=== PATIENT | female | born 1960 | race Caucasian/White ===

== ENCOUNTER 2017-03-21 11:19 | Inpatient (IN) | payer OTHER ==
[~2017-03-21] VITALS: Ht 154.9 cm; Wt 67.1 kg
--- NOTE | 2017-03-21 12:30 | NUR ---
MS ASSOCIATE PROFESSOR OF ENGLISH NOTE PATIENT IS ALERT AND ORIENTED x4. PATIENT IS FROM [facility]. NO PAIN AT THIS TIME. NO SOB OR DISTRESS AT THIS TIME. CALL LIGHT WITHIN REACH. SAFETY MEASURES IMPLEMENTED. ABLE TO COMMUNICATE NEEDS. NO IV ACCESS. AWAITING FOR MD ORDERS AT THIS TIME. PATIENT SKIN INTACT. ALL BELONGINGS ACCOUNTED FOR AND AT BEDSIDE. PATIENT HAS MILD WEAKNESS ON RIGHT SIDE. REQUIRES ASSISTANCE WHEN WALKING. HISTORY OF NEUROPATHY AND TRAUMATIC BRAIN INJURY WEARS HELMET WHEN OUT OF BED. WILL CONTINUE TO MONITOR THROUGHOUT SHIFT.
[2017-03-21] MEDS ORDERED: IV NS 0.9% 1,000 ML IV PRN (12:51)
[2017-03-21] MEDS ORDERED: ACETAMINOPHEN 325 MG TABLET PO PRN (13:00)
[2017-03-21] MEDS ORDERED: ONDANSETRON HCL/PF 4 MG/2 ML VIAL IVP PRN (13:00)
[2017-03-21] MEDS ORDERED: MAG HYDROX/AL HYDROX/SIMETH 30 ML UDC PO PRN (13:00)
[2017-03-21] MEDS ORDERED: ZOLPIDEM TARTRATE 5 MG TABLET PO PRN (13:00)
[2017-03-21] MEDS ORDERED: MAGNESIUM HYDROXIDE 30 ML UDC PO PRN (13:00)
[2017-03-21] MEDS ORDERED: Z GUARD REMEDY 2 OZ OINT TP PRN (13:00)
[2017-03-21] MEDS: HYDROCODONE/APAP 5/325MG 1 EACH TABLET PO PRN ×3 (13:53→23:20)
--- NOTE | 2017-03-21 15:50 | NUR ---
MS RN NOTE PER PATIENT REFUSING IV INSERTION AT THIS TIME. CHARGE NURSE INFORMED
[2017-03-21 16:00] VITALS: BP 133/85
--- NOTE | 2017-03-21 17:13 | NUR ---
MS RN NOTE PER PATIENT SHE HAS DNR/DNI ADVANCED DIRECTIVE FROM [facility]AN[facility]. PATIENT WISHES TO BE DNR/DNI AT THIS TIME. AWARE.
[2017-03-21] MEDS: ALPRAZOLAM 0.25 MG TABLET PO PRN (18:00)
[2017-03-21] MEDS ORDERED: ALPR1TAB2 PO (18:40)
[2017-03-21] MEDS ORDERED: BACL10TA PO (18:40)
[2017-03-21] MEDS ORDERED: OXYB10TA PO (18:40)
[2017-03-21] MEDS ORDERED: TRAM50TA2 PO (18:40)
[2017-03-21] MEDS ORDERED: GABA-536 PO (18:40)
[2017-03-21] MEDS ORDERED: LEVE500T9 PO (18:40)
[2017-03-21] MEDS ORDERED: MIRT15TA7 PO (18:40)
[2017-03-21] MEDS ORDERED: FOLI1TAB16 PO (18:40)
[2017-03-21] MEDS ORDERED: HYDR-548 PO (18:40)
[2017-03-21] MEDS ORDERED: THYR60TA30 PO (18:40)
[2017-03-21] MEDS ORDERED: THYR90TA12 PO (18:40)
[2017-03-21] MEDS ORDERED: SULI150T PO (18:40)
[2017-03-21] MEDS ORDERED: DULO60CA45 PO (18:40)
--- NOTE | 2017-03-21 18:50 | NUR ---
MS RN CLOSING NOTE PATIENT IS ALERT AND ORIENTED x4. NO PAIN AT THIS TIME. NO SOB OR DISTRESS NOTED. CALL LIGHT WITHIN REACH AT ALL TIMES. SAFETY MEASURES IMPLEMENTED. ALL DUE MEDICATIONS GIVEN ORDERED. PATIENT REFUSES IV ACCESS. PATIENT REQUEST TO BE DNR/DNIMD AWARE. WILL ENDORSE TO NIB ADJUSTER FOR CINTHYA
--- NOTE | 2017-03-21 19:30 | NUR ---
MS RN OPENING NOTES: PATIENT IN BED, ASLEEP AT THIS TIME. BREATHING EVEN AND UNLABORED. PROVIDED FOR COMFORT AND SAFETY. BED IN LOWEST AND LOCKED POSITION, SIDERAILS UP X3, CALL LIGHT WITHIN REACH. WILL CONT TO MONITOR.
[2017-03-21 20:00] VITALS: BP 133/92
--- NOTE | 2017-03-21 21:10 | NUR ---
RN NOTES: CALLED [facility] WALLBOARD WORKER, DR HUITRON, RE PATIENT'S HOME MEDS IF OK TO CONTINUE. PER MD, CONTINUE ALL HOME MEDS. PATIENT REQUESTING FOR HER REMERON AT . NOTED AND CARRIED OUT.
[2017-03-21] MEDS ORDERED: MIRTAZAPINE 15 MG TABLET ONE (22:23)
[2017-03-21] MEDS: MIRTAZAPINE 15 MG TABLET PO SCH (22:30)
--- NOTE | 2017-03-22 02:23 | NUR ---
RN NOTES: OFFERED DVT PUMPS TO PATIENT, EDUCATION GIVEN REGARDING INDICATION AND USES, HOWEVER, PATIENT REFUSED.
[2017-03-22] MEDS: HYDROCODONE/APAP 5/325MG 1 EACH TABLET PO PRN ×4 (04:31→18:51)
--- NOTE | 2017-03-22 04:36 | NUR ---
RN NOTES: PATIENT COMPLAINED OF 7/10 PAIN OVER LEFT HAND AND LEFT FOOT. ADMINISTERED NORCO 5-325 MG PO PRN. PROVIDED FOR SAFETY. WILL CONT TO MONITOR.
--- NOTE | 2017-03-22 06:48 | NUR ---
MS RN CLOSING NOTES: PATIENT IN BED, AOX3, ON ROOM AIR, BREATHING EVEN AND UNLABORED. APPEARS CALM AND IN NO DISTRESS, STILL COMPLAINING OF MILD PAIN OVER LEFT HAND AND FOOT. DUE MEDS GIVEN. PROVIDED FOR COMFORT AND SAFETY. MORNING CARE RENDERED. BED IN LOWEST AND LOCKED POSITION, SIDERAILS UP X3, CALL LIGHT WITHIN REACH. WILL ENDORSE TO AM RN FOR CINTHYA.
[2017-03-22 06:56] LABS: BASOPHILS % (AUTO) 0.3 % (0.0-2.0); EOSINOPHILS # (AUTO) 0.1 /CMM (0.0-0.7); EOSINOPHILS % (AUTO) 1.4 % (0.0-6.0); HEMATOCRIT 45 % (33-45); HEMOGLOBIN 14.4 g/dL (11.5-14.8); LYMPHOCYTES # (AUTO) 2.2 /CMM (0.8-4.8); LYMPHOCYTES % (AUTO) 21.8 % (20.0-44.0); MEAN CORPUSCULAR HEMOGLOBIN 31 PG (26.0-33.0); MEAN CORPUSCULAR HGB CONC 32 g/dl (31.0-36.0); MEAN CORPUSCULAR VOLUME 95 fL (82-100); MONOCYTES # (AUTO) 0.6 /CMM (0.1-1.30); MONOCYTES % (AUTO) 5.7 % (2.0-12.0); NEUTROPHILS # (AUTO) 7.3 /CMM (1.8-8.9); NEUTROPHILS % (AUTO) 70.8 % (43.0-81.0); PLATELET COUNT (AUTO) 516 /CMM (150-450); RDW COEFFICIENT OF VARIATION 12.7 (11.5-15.0); WHITE BLOOD COUNT (AUTO) 10.3 K/uL (4.3-11.0)
[2017-03-22 07:09] LABS: APPEARANCE,URINE CLEAR (CLEAR); BILIRUBIN,URINE 1+ (NEGATIVE); BLOOD, URINE NEGATIVE Ery/uL (NEGATIVE); COLOR,URINE YELLOW (YELLOW); KETONES,URINE 3+ (NEGATIVE); LEUKOCYTE ESTERASE ,URINE NEGATIVE (NEGATIVE); NITRITE, URINE NEGATIVE (NEGATIVE); PROTEIN,URINE NEGATIVE (NEGATIVE); UGLUCOSE NEGATIVE (NEGATIVE); UROBILINOGEN,URINE 0.2 EU/dL (0.2)
[2017-03-22 07:28] LABS: ALBUMIN 3.9 g/dL (3.4-5.0); BILIRUBIN,TOTAL 0.5 mg/dL (0.2-1.0); CALCIUM, SERUM 9.9 mg/dL (8.5-10.1); CREATININE 0.8 mg/dL (0.6-1.3); INR 0.98 (0.87-1.13); MAGNESIUM 1.9 mg/dL (1.8-2.4); PHOSPHORUS 3.7 mg/dL (2.5-4.9); POTASSIUM 3.8 mmol/L (3.5-5.1); PROTHROMBIN TIME 10.2 SECS (9.5-12.7); TOTAL PROTEIN, SERUM 7.9 g/dL (6.4-8.2)
[2017-03-22 07:39] LABS: CREATINE KINASE MB 0.9 ng/mL (0-3.6); PREALBUMIN 22.7 MG/DL (18.0-35.7)
--- NOTE | 2017-03-22 07:45 | NUR ---
MS RN OPENING NOTES RECEIVED PATIENT IN NO APPARENT DISTRESS. PATIENT IS ALERT AND RESTING IN BED. BEDSIDE RAILS ARE UP X2. BED IS LOCKED AND LOWERED. WILL CONTINUE TO MONITOR. CALL LIGHT IS WITHIN REACH.
[2017-03-22 08:00] VITALS: BP 145/89
[2017-03-22] MEDS ORDERED: ALPRAZOLAM 1 MG TABLET PO PRN (08:00)
[2017-03-22] MEDS ORDERED: SULINDAC 200 MG TABLET PO SCH (09:00)
[2017-03-22] MEDS ORDERED: LEVETIRACETAM (250 MG) 250 MG TABLET PO SCH (09:00)
[2017-03-22] MEDS: FOLIC ACID 1 MG TABLET PO SCH (09:02)
[2017-03-22] MEDS: OXYBUTYNIN CHLORIDE 5 MG TABLET PO SCH ×2 (09:02→16:17)
[2017-03-22] MEDS: DULOXETINE HCL 30 MG CAPSULE.DR PO SCH (09:04)
[2017-03-22] MEDS: GABAPENTIN 400 MG CAPSULE PO SCH ×3 (09:04→16:17)
[2017-03-22] MEDS: TRAMADOL HCL 50 MG TABLET PO SCH ×3 (09:04→16:18)
[2017-03-22] MEDS: BACLOFEN (10 MG) 10 MG TABLET PO SCH ×3 (09:04→16:17)
[2017-03-22] MEDS ORDERED: MENTHOL/CETYLPYRD (CEPACOL) 1 LOZ LOZENGE PO PRN (10:00)
[2017-03-22] MEDS: THYROID 30 MG TABLET PO SCH (10:25)
[2017-03-22 11:05] LABS: BACTERIA,URINE Few /HPF (None Seen); RBC,URINE NONE SEEN /HPF (0-2); SQUAMOUS EPITHELIAL CELL,UR Few /HPF (None Seen); WBC,URINE 0-2 /HPF (0-3)
[2017-03-22] MEDS: ALPRAZOLAM 0.25 MG TABLET PO PRN (11:50)
[2017-03-22 16:00] VITALS: BP 128/85
[2017-03-22] MEDS: LEVETIRACETAM (250 MG) 250 MG TABLET PO SCH (17:56)
--- NOTE | 2017-03-22 18:56 | NUR ---
MS RN CLOSING NOTES PATIENT IS IN STABLE CONDITION. IN NO APPARENT DISTRESS. BEDSIDE RAILS ARE UP X2. CALL LIGHT IS WITHIN REACH. BED IS LOCKED AND LOWERED. WILL ENDORSE CARE TO PRODUCT CONSULTANT NURSE FOR CINTHAY.
--- NOTE | 2017-03-22 19:35 | NUR ---
MS RN INITIAL NOTES RECEIVED PT IN BED, ALERT, AWAKE, VERBALLY RESPONSIVE, ON ROOM AIR, NO SOB,NO APPARENT DISTRESS NOTED. DENIES ANY PAIN OR DISCOMFORT AT THIS TIME.KEPT CLEAN AND COMFORTABLE,ATTENDED ALL NEEDS. WILL CONTINUE TO MONITOR ACCORDINGLY.
[2017-03-22 20:00] VITALS: BP 120/76
[2017-03-22] MEDS: MIRTAZAPINE 15 MG TABLET PO SCH (21:09)
[2017-03-22 21:56] VITALS: BP 120/76
[2017-03-22] MEDS ORDERED: MIRTAZAPINE 15 MG TABLET PO SCH (22:00)
[2017-03-23] MEDS: HYDROCODONE/APAP 10/325MG 1 EA TABLET PO PRN ×5 (04:41→22:12)
--- NOTE | 2017-03-23 06:16 | NUR ---
MS RN CLOSING NOTES PT ALERT,AWAKE,VERBALLY RESPONSIVE,ON ROOM AIR, RESPIRATIONS EVEN, UNLABORED, NO SOB NOTED.COMPLAINED OF PAIN IN THE LEFT LOWER LED AND LT ARM, NORCO 10-325 ADMINISTERED ORDERED. KEPT CLEAN AND COMFORTABLE,ATTENDED ALL NEEDS.CALL LIGHT WITHIN REACH. WILL CONTINUE TO MONITOR.
[2017-03-23] MEDS ORDERED: THYROID 30 MG TABLET PO SCH (07:30)
--- NOTE | 2017-03-23 07:34 | NUR ---
MS RN OPENING NOTES RECEIVED PATIENT IN STABLE CONDITION. IN NO APPARENT DISTRESS. PATIENT IS RESTING IN BED. BEDSIDE RAILS ARE UP X2. BED IS LOCKED AND LOWERED. CALL LIGHT IS WITHIN REACH. WILL CONTINUE TO MONITOR.
[2017-03-23] MEDS: THYROID 30 MG TABLET PO SCH (07:58)
[2017-03-23 08:00] VITALS: BP 122/76
[2017-03-23] MEDS: GABAPENTIN 400 MG CAPSULE PO SCH ×3 (08:00→16:10)
[2017-03-23] MEDS: DULOXETINE HCL 30 MG CAPSULE.DR PO SCH (08:01)
[2017-03-23] MEDS: TRAMADOL HCL 50 MG TABLET PO SCH ×3 (08:01→16:10)
[2017-03-23] MEDS: LEVETIRACETAM (250 MG) 250 MG TABLET PO SCH (08:01)
[2017-03-23] MEDS: BACLOFEN (10 MG) 10 MG TABLET PO SCH ×3 (08:01→16:10)
[2017-03-23] MEDS: OXYBUTYNIN CHLORIDE 5 MG TABLET PO SCH ×2 (08:01→16:11)
[2017-03-23] MEDS: FOLIC ACID 1 MG TABLET PO SCH (08:05)
[2017-03-23 16:00] VITALS: BP 115/74
--- NOTE | 2017-03-23 18:58 | NUR ---
MS RN CLOSING NOTES PATIENT IS NO APPARENT DISTRESS. PATIENT IS ALERT AND RESTING IN BED. CALL LIGHT IS WITHIN REACH. BEDSIDE RAILS ARE UP X2. BED IS LOCKED AND LOWERED. ALL NEEDS WERE MET. WILL ENDORSE CARE TO SLPS NURSE FOR CINTHYA.
--- NOTE | 2017-03-23 19:46 | NUR ---
MS RN OPENING NOTES RECEIVED PT IN BED, AWAKE,ALERT,VERBALLY RESPONSIVE,ON ROOM AIR,NO SOB, NO APPARENT DISTRESS NOTED.DENIES ANY PAIN OR DISCOMFORT AT THIS TIME. KEPT CLEAN AND COMFORTABLE,CALL LIGHT WITHIN REACH.WILL CONTINUE TO MONITOR ACCORDINGLY
[2017-03-23 20:00] VITALS: BP 105/79
[2017-03-23 21:01] VITALS: BP 105/79
[2017-03-23] MEDS: MIRTAZAPINE 15 MG TABLET PO SCH (22:12)
[2017-03-24] MEDS: HYDROCODONE/APAP 10/325MG 1 EA TABLET PO PRN ×4 (05:19→20:10)
--- NOTE | 2017-03-24 06:29 | NUR ---
MS RN CLOSING NOTES PT IN BED,ASLEEP,ON ROOM AIR,NO SOB NOTED. NO S/SX OF PAIN OR DISCOMFORT NOTED,BED IN LOWEST POSITION, CALL LIGHT WITHIN REACH. WILL CONTINUE TO MONITOR ACCORDINGLY
[2017-03-24 07:29] LABS: BASOPHILS % (AUTO) 0.5 % (0.0-2.0); EOSINOPHILS # (AUTO) 0.5 /CMM (0.0-0.7); EOSINOPHILS % (AUTO) 4.7 % (0.0-6.0); HEMATOCRIT 41 % (33-45); HEMOGLOBIN 13.6 g/dL (11.5-14.8); LYMPHOCYTES # (AUTO) 3.2 /CMM (0.8-4.8); MEAN CORPUSCULAR HEMOGLOBIN 31 PG (26.0-33.0); MEAN CORPUSCULAR HGB CONC 33 g/dl (31.0-36.0); MEAN CORPUSCULAR VOLUME 95 fL (82-100); MONOCYTES # (AUTO) 0.9 /CMM (0.1-1.30); MONOCYTES % (AUTO) 8.1 % (2.0-12.0); NEUTROPHILS % (AUTO) 56.7 % (43.0-81.0); PLATELET COUNT (AUTO) 484 /CMM (150-450); RDW COEFFICIENT OF VARIATION 12.6 (11.5-15.0); RED BLOOD CELL COUNT(AUTO) 4.34 MIL/uL (4.0-5.2); WHITE BLOOD COUNT (AUTO) 10.7 K/uL (4.3-11.0)
--- NOTE | 2017-03-24 07:34 | NUR ---
MS RN OPENING NOTES RECEIVED PATIENT IN STABLE CONDITION. IN NO APPARENT DISTRESS. PATIENT IS ALERT. BEDSIDE RAILS ARE UP X2. BED IS LOCKED AND LOWERED. CALL LIGHT IS WITHIN REACH. WILL CONTINUE TO MONITOR.
[2017-03-24 07:53] LABS: CALCIUM, SERUM 9.3 mg/dL (8.5-10.1); CREATININE 0.8 mg/dL (0.6-1.3); MAGNESIUM 1.9 mg/dL (1.8-2.4); PHOSPHORUS 3.9 mg/dL (2.5-4.9); POTASSIUM 3.5 mmol/L (3.5-5.1)
[2017-03-24 08:00] VITALS: BP 124/78
[2017-03-24] MEDS: BACLOFEN (10 MG) 10 MG TABLET PO SCH ×3 (08:09→16:43)
[2017-03-24] MEDS: LEVETIRACETAM (250 MG) 250 MG TABLET PO SCH (08:09)
[2017-03-24] MEDS: DULOXETINE HCL 30 MG CAPSULE.DR PO SCH (08:10)
[2017-03-24] MEDS: FOLIC ACID 1 MG TABLET PO SCH (08:10)
[2017-03-24] MEDS: OXYBUTYNIN CHLORIDE 5 MG TABLET PO SCH ×2 (08:10→16:43)
[2017-03-24] MEDS: TRAMADOL HCL 50 MG TABLET PO SCH ×3 (08:10→16:48)
[2017-03-24] MEDS: GABAPENTIN 400 MG CAPSULE PO SCH ×3 (08:10→16:43)
[2017-03-24] MEDS: THYROID 30 MG TABLET PO SCH (08:12)
[2017-03-24 16:00] VITALS: BP 119/75
[2017-03-24] MEDS: SULINDAC 200 MG TABLET PO SCH (18:21)
--- NOTE | 2017-03-24 19:14 | NUR ---
MS RN CLOSING NOTES PATIENT IS ALERT AND IN NO APPARENT DISTRESS. PATIENT IS RESTING IN BED. ALL NEEDS WERE MET. BEDSIDE RAILS ARE UP X2. BED IS LOCKED AND LOWERED. WILL ENDORSE CARE TO ENERGY ENGINEER NURSE FOR CINTHYA.
[2017-03-24 20:00] VITALS: BP 119/74
[2017-03-24] MEDS: MIRTAZAPINE 15 MG TABLET PO SCH (20:09)
--- NOTE | 2017-03-24 20:10 | NUR ---
msrn VERBALIZES PAIN ON LEFT HAND AND LEFT FOOT. MEDICATED WITH NORCO 10/325 1 TAB ORDERED. REQUESTED FOR REMERON TO BE ADMINISTERED EARLY. WANTED TO SLEEP EARLY, FEELING TIRED FROM PHYSICAL THERAPY TODAY. HS CARE STARTED, CONTINUED.
--- NOTE | 2017-03-24 22:53 | NUR ---
STEPHIE SLEEPING OF THIS TIME, CLOSELY WATCHED.
--- NOTE | 2017-03-24 23:30 | NUR ---
RN NOTES: RECEIVED PATIENT'S REPORT FROM CHRISTY BRIGHT, FOR CINTHYA. PATIENT IN BED, ASLEEP OF THIS TIME. ON ROOM AIR, BREATHING EVEN AND UNLABORED. BED IN LOWEST AND LOCKED POSITION, SIDERAILS UP X 3. CALL LIGHT WITHIN REACH. WILL CONT TO MONITOR.
[2017-03-25] MEDS: HYDROCODONE/APAP 10/325MG 1 EA TABLET PO PRN ×5 (06:21→23:58)
--- NOTE | 2017-03-25 06:23 | NUR ---
MS RN CLOSING NOTES: PATIETN IN BED, AOX4, ON ROOM AIR, BREATHING EVEN AND UNLABORED. PATIENT COMPLAINS OF PAIN OVER LEFT ARM AND LEFT LEG, SCALED AT 8/10, ADMINISTERED NORCO 10-325 PO PRN. PROVIDED FOR COMFORT AND SAFETY. VS CHECKED, STABLE. BED IN LOWEST AND LOCKED POSITION, SIDERAILS UP X3. WILL ENDORSE TO AM RN FOR CINTHYA.
[2017-03-25 06:25] VITALS: BP 128/75
--- NOTE | 2017-03-25 07:30 | NUR ---
ms rn received on bed, awake,alert,oriented x4,not in any form of distress, respirations even and unlabored, no sob noted. lungs are clear,abdomen soft,positive bowel sounds, denies pain a this time,all needs attended.
[2017-03-25 08:00] VITALS: BP 108/72
--- NOTE | 2017-03-25 09:20 | NUR ---
ms carias breakfast served,due meds given,tolerated well.
[2017-03-25] MEDS: GABAPENTIN 400 MG CAPSULE PO SCH ×3 (09:33→17:22)
[2017-03-25] MEDS: BACLOFEN (10 MG) 10 MG TABLET PO SCH ×3 (09:33→17:22)
[2017-03-25] MEDS: LEVETIRACETAM (250 MG) 250 MG TABLET PO SCH (09:33)
[2017-03-25] MEDS: FOLIC ACID 1 MG TABLET PO SCH (09:33)
[2017-03-25] MEDS: SULINDAC 200 MG TABLET PO SCH ×2 (09:33→17:22)
[2017-03-25] MEDS: OXYBUTYNIN CHLORIDE 5 MG TABLET PO SCH ×2 (09:34→17:22)
[2017-03-25] MEDS: DULOXETINE HCL 30 MG CAPSULE.DR PO SCH (09:34)
[2017-03-25] MEDS: TRAMADOL HCL 50 MG TABLET PO SCH ×3 (09:35→17:23)
[2017-03-25] MEDS: THYROID 30 MG TABLET PO SCH (10:13)
[2017-03-25 16:00] VITALS: BP 118/78
--- NOTE | 2017-03-25 17:00 | NUR ---
MS RN PATIENT NOTIFIED THAT D'C WILL HAPPEN TOMORROW,NOT TODAY.
[2017-03-25] MEDS: ALPRAZOLAM 0.25 MG TABLET PO PRN (17:24)
--- NOTE | 2017-03-25 17:59 | NUR ---
MS CHRISTY NO CHANGE OF CONDITION, WILL ENDORSE TO GRANITE CUTTER APPRENTICE FOR CINTHYA.
--- NOTE | 2017-03-25 19:25 | NUR ---
MS/RN NOTES RECEIVED PT. LYING IN BED. AWAKE, ALERT AND ORIENTED X3-4. BREATHING EVEN AND UNLABORED ON ROOM AIR. NO SOB, RESPIRATORY DISTRESS OR COMPLAINTS OF PAIN NOTED AT THIS TIME. PT. WITH NO IV ACCESS, PT. REFUSING, PER DAYSHIFT NURSE AWARE. BED LOCKED AND IN LOWEST POSITION, SIDE RAILS UP X3, CALL LIGHT WITHIN REACH, BED ALARM ON, WILL CONTINUE TO MONITOR.
[2017-03-25 20:00] VITALS: BP 107/71
[2017-03-25] MEDS: MIRTAZAPINE 15 MG TABLET PO SCH (21:40)
--- NOTE | 2017-03-25 23:59 | NUR ---
MSRN VERBALIZES PAIN ON LEFT ARM TO LEG LEVEL 8/10. NORCO 10/325 1 TAB PO ADMINISTERED ORDERED. POSITIONS SELF FOR COMFORT. XTRA WARM BLANKET PROVIDED.
--- NOTE | 2017-03-26 06:29 | NUR ---
MS/RN NOTES PT. IS LYING IN BED RESTING. BREATHING EVEN AND UNLABORED ON ROOM AIR. NO SOB, RESPIRATORY DISTRESS OR COMPLAINTS OF PAIN NOTED AT THIS TIME. PT. REMAINS WITH NO IV ACCESS, MD AWARE. ALL PT. NEEDS MET. ALL DUE MEDICATIONS GIVEN. BED LOCKED AND IN LOWEST POSITION, SIDE RAILS UP X3, CALL LIGHT WITHIN REACH, BED ALARM ON, WILL ENDORSE TO DAYSHIFT NURSE FOR CONTINUITY OF CARE.
[2017-03-26] MEDS: HYDROCODONE/APAP 10/325MG 1 EA TABLET PO PRN ×3 (07:14→17:50)
--- NOTE | 2017-03-26 07:30 | NUR ---
MS RN RECEIVED ON BED,AWAKE,ALERT,ORIENTED X4,NOT IN ANY FORM OF DISTRESS, RESPIRATIONS EVEN AND UNLABORED,NO SOB NOTED, LUNGS ARE CLEAR,ABDOMEN SOFT,POSITIVE BOWEL SOUNDS, DENIES PAIN AT THIS TIME, WILL MON ITOR PATIENT'S CONDITION,ALL NEEDS ATTENDED.
[2017-03-26 08:00] VITALS: BP 124/72
[2017-03-26] MEDS: THYROID 30 MG TABLET PO SCH (08:23)
[2017-03-26] MEDS: SULINDAC 200 MG TABLET PO SCH ×2 (08:24→16:58)
[2017-03-26] MEDS: OXYBUTYNIN CHLORIDE 5 MG TABLET PO SCH ×2 (08:24→16:59)
[2017-03-26] MEDS: FOLIC ACID 1 MG TABLET PO SCH (08:25)
[2017-03-26] MEDS: DULOXETINE HCL 30 MG CAPSULE.DR PO SCH (08:25)
[2017-03-26] MEDS: LEVETIRACETAM (250 MG) 250 MG TABLET PO SCH (08:25)
[2017-03-26] MEDS: BACLOFEN (10 MG) 10 MG TABLET PO SCH ×3 (08:25→16:59)
[2017-03-26] MEDS: GABAPENTIN 400 MG CAPSULE PO SCH ×3 (08:25→16:59)
[2017-03-26] MEDS: TRAMADOL HCL 50 MG TABLET PO SCH ×3 (08:26→16:59)
--- NOTE | 2017-03-26 09:00 | NUR ---
MS HARRISON BREAKFAST SERVED,DUE MEDS GIVEN,TOLERATED WELL.
--- NOTE | 2017-03-26 10:14 | NUR ---
MS RN WAITING FOR DISCHARGE, ALL NEEDS ATTENDED.
[2017-03-26 16:00] VITALS: BP 98/68
--- NOTE | 2017-03-26 18:29 | NUR ---
MS RN PATIENT DISCHARGE TO [facility] VIA AMBULANCE,ALL NEEDS ATTENDED.
== END 2017-03-26 18:00 | DRG 816 ==
LOC: ER 11:24 → MED 12:35
DX: T59.811A Toxic effect of smoke, accidental (unintentional), initial encounter (principal); J96.01 Acute respiratory failure with hypoxia; G62.9 Polyneuropathy, unspecified; Y92.129 Unspecified place in nursing home as the place of occurrence of the external cause
CPT/HCPCS: 36415; 71010-TC; 80048-TC; 80053-TC; 80061-TC; 81000-TC; 82150-TC; 82553-TC; 83540-TC; 83690-TC; 83735-TC; 84100-TC; 84134-TC; 85025-TC; 85652-TC; 85730-TC; 87040-TC; 87081-TC; 87086-TC; A4606; Z7610

== ENCOUNTER 2019-08-13 09:58 | Emergency (ER) | payer OTHER ==
[~2019-08-13] VITALS: Ht 170.2 cm; Wt 72.3 kg
[~2019-08-13 09:58] MED LIST: ALPR1TAB2 PO; BACL10TA PO; DULO60CA45 PO; FOLI1TAB16 PO; GABA-536 PO; HYDR-4354 PO; LEVE500T9 PO; MIRT15TA7 PO; OXYB10TA30 PO; SULI150T PO; THYR60TA30 PO; THYR90TA12 PO; TRAM50TA2 PO
--- NOTE | 2019-08-13 10:00 | NUR ---
PT BIB EMS FROM [facility] C/O FEVER AND LOW 2 SAT AT 89% ON RA, PT IS AAOX3, NOT IN RESPIRATORY DISTRESS, HOOKED TO GATE SUPERVISOR, KEPT RESTED AND COMFORTABLE, WILL CONTINUE TO MONITOR.
--- NOTE | 2019-08-13 10:05 | NUR ---
SEEN AND EXAMINED BY .
--- NOTE | 2019-08-13 10:08 | NUR ---
IV LINE ESTABLISHED BLOOD DRAWN AND SENT TO LAB.
--- NOTE | 2019-08-13 10:10 | NUR ---
URINE SPECIMEN COLLECTED AND SENT TO LAB.
[2019-08-13] MEDS ORDERED: VANCOMYCIN 1 GM in IV D5W 250 ML IV ONE (10:30)
[2019-08-13] MEDS ORDERED: IV NS 0.9% 1,000 ML BAG IV ONE (10:30)
[2019-08-13 10:37] LABS: BASOPHILS # (AUTO) 0.1 /CMM (0.0-0.2); BASOPHILS % (AUTO) 1.3 % (0.0-2.0); EOSINOPHILS % (AUTO) 0.8 % (0.0-6.0); HEMATOCRIT 41 % (33-45); HEMOGLOBIN 13.4 g/dL (11.5-14.8); LYMPHOCYTES # (AUTO) 1.6 /CMM (0.8-4.8); LYMPHOCYTES % (AUTO) 24.2 % (20.0-44.0); MEAN CORPUSCULAR HGB CONC 33 g/dl (31.0-36.0); MEAN CORPUSCULAR VOLUME 95 fL (82-100); MONOCYTES # (AUTO) 0.4 /CMM (0.1-1.30); MONOCYTES % (AUTO) 6.5 % (2.0-12.0); NEUTROPHILS # (AUTO) 4.4 /CMM (1.8-8.9); NEUTROPHILS % (AUTO) 67.2 % (43.0-81.0); PLATELET COUNT (AUTO) 298 /CMM (150-450); RED BLOOD CELL COUNT(AUTO) 4.31 MIL/uL (4.0-5.2); WHITE BLOOD COUNT (AUTO) 6.6 K/uL (4.3-11.0)
[2019-08-13 10:38] LABS: APPEARANCE,URINE Clear (CLEAR); BILIRUBIN,URINE Negative (NEGATIVE); BLOOD, URINE Negative Ery/uL (NEGATIVE); COLOR,URINE Yellow (YELLOW); KETONES,URINE Negative (NEGATIVE); LEUKOCYTE ESTERASE ,URINE Negative (NEGATIVE); NITRITE, URINE Negative (NEGATIVE); PROTEIN,URINE Negative (NEGATIVE); UGLUCOSE Negative (NEGATIVE)
[2019-08-13 10:41] LABS: BACTERIA,URINE Few /HPF (None Seen); RBC,URINE 0-2 /HPF (0-2); SQUAMOUS EPITHELIAL CELL,UR Few /HPF (None Seen); WBC,URINE 0-2 /HPF (0-3)
[2019-08-13 10:45] LABS: CALCIUM, SERUM 8.9 mg/dL (8.5-10.1); CARBON DIOXIDE 31 mmol/L (21-32); CHLORIDE 101 mmol/L (98-107); GLUCOSE 106 mg/dL (74-106); POTASSIUM 3.7 mmol/L (3.5-5.1); SODIUM SERUM 140 mmol/L (136-145); UREA NITROGEN, BLOOD 12 mg/dL (7-18)
[2019-08-13 10:52] LABS: ALANINE AMINOTRANSFERASE 26 U/L (12-78); ALBUMIN 3.4 g/dL (3.4-5.0); ALKALINE PHOSPHATASE 93 U/L (46-116); ASPARTATE AMINOTRANSFERASE 39 U/L (15-37); BILIRUBIN,TOTAL 0.2 mg/dL (0.2-1.0); TOTAL PROTEIN, SERUM 7.2 g/dL (6.4-8.2)
--- NOTE | 2019-08-13 11:05 | NUR ---
CALLED [id number] [phone] CONFIRMATION # [id number] WILL CALL US WITH ETA .
--- NOTE | 2019-08-13 12:18 | NUR ---
CALLED [facility]OS NO ANSWER FROM CHRISTY VASQUEZ.
--- NOTE | 2019-08-13 12:34 | NUR ---
PT LEFT ON GURNEY WITH 2 AMBULANCE STAFF. PT IS STABLE FOR TRANSPORT. NAD.
[2019-08-13 12:35] VITALS: BP 109/71
== END 2019-08-13 12:35 | disposition home or self-care (01) ==
LOC: ER 10:02
DX: R50.9 Fever, unspecified (principal); G40.909 Epilepsy, unspecified, not intractable, without status epilepticus; Z86.19 Personal history of other infectious and parasitic diseases; Z86.73 Personal history of transient ischemic attack (TIA), and cerebral infarction without residual deficits; Z88.1 Allergy status to other antibiotic agents; Z88.6 Allergy status to analgesic agent; Z88.0 Allergy status to penicillin; Z79.899 Other long term (current) drug therapy
CPT/HCPCS: 36415; 71045; 80048; 80076; 81001; 83605; 84145; 84484; 85025; 85730; 87040 ×2; 87086; 96365; 99284; J3370; J7030; J7060; 81000-TC

== ENCOUNTER 2023-02-06 12:48 | Emergency (ER) | payer OTHER ==
[~2023-02-06] VITALS: Ht 154.9 cm; Wt 67.6 kg
[~2023-02-06 12:48] MED LIST changes: +MIRT-90 PO; -MIRT15TA7 PO
[2023-02-06] MEDS ORDERED: POLY17PO4 PO (13:24)
[2023-02-06] MEDS ORDERED: DICL100G26 TP (13:24)
[2023-02-06] MEDS ORDERED: LEVO75TA7 PO (13:24)
[2023-02-06] MEDS ORDERED: BISA10SU11 RC (13:24)
[2023-02-06] MEDS ORDERED: PSYL3.4P6 PO (13:24)
[2023-02-06] MEDS ORDERED: SIME80TA15 PO (13:24)
[2023-02-06] MEDS ORDERED: CALC1TAB30 PO (13:24)
[2023-02-06] MEDS ORDERED: HYDR-3972 PO (13:24)
[2023-02-06] MEDS ORDERED: ACET-2605 PO (13:24)
[2023-02-06] MEDS ORDERED: NALO4SPR NS (13:24)
[2023-02-06] MEDS ORDERED: POLY15DR40 EACHEYE (13:24)
[2023-02-06] MEDS ORDERED: CHOL100043 PO (13:24)
[2023-02-06] MEDS ORDERED: CRAN425C6 PO (13:24)
[2023-02-06] MEDS ORDERED: GLUC10007 MM (13:24)
[2023-02-06] MEDS ORDERED: ACET-868 PO (13:24)
[2023-02-06] MEDS ORDERED: oxyCODONE/APAP (5/325 MG) 1 UDTAB TABLET PO ONE (14:00)
[2023-02-06] MEDS ORDERED: oxyCODONE/APAP (5/325 MG) 1 UDTAB TABLET ONE (14:29)
[2023-02-06 16:00] VITALS: BP 146/100; TEMP 99; O2SAT 96
== END 2023-02-06 16:01 ==
LOC: ER 12:58
DX: M54.9 Dorsalgia, unspecified (principal); G40.909 Epilepsy, unspecified, not intractable, without status epilepticus; Z79.899 Other long term (current) drug therapy; Z98.890 Other specified postprocedural states; Z88.0 Allergy status to penicillin; Z88.1 Allergy status to other antibiotic agents
CPT/HCPCS: 36415; 72128-TC; 72131-TC